=== PATIENT | male | born 1990 | race Caucasian/White ===

== ENCOUNTER 2019-04-11 22:02 | Emergency (ER) | payer SELFPAY ==
[~2019-04-11] VITALS: Ht 188 cm; Wt 53.0 kg
[2019-04-12 00:01] LABS: HEMATOCRIT 28.2 % (42.0-52.0); HEMOGLOBIN 9.7 g/dL (14.0-18.0); MEAN CORPUSCULAR HEMOGLOBIN 27.2 pg (28.0-32.0); MEAN CORPUSCULAR VOLUME 79.3 fL (80.0-94.0); PLATELET 384 x1000/uL (130-400); RED BLOOD CELL COUNT 3.55 mill/uL (4.7-6.1); RED CELL DISTRIBUTION WIDTH 15.5 % (11.6-14.6)
[2019-04-12 00:14] LABS: CHLORIDE 100 mEq/L (98-107)
[2019-04-12 00:21] LABS: BETA HYDROXYBUTYRATE 0.1 mMol/L (0.0-0.3)
[2019-04-12] MEDS ORDERED: POTASSIUM CHLORIDE 20MEQ TABLET SR PO NR (00:45)
[2019-04-12] MEDS ORDERED: SODIUM CHLORIDE 0.9% 1,000 ML IV NR (00:45)
[2019-04-12 02:27] VITALS: BP 109/67
== END 2019-04-12 02:39 | disposition home or self-care (01) ==
LOC: ER 22:02
DX: D64.9 Anemia, unspecified (principal); E11.649 Type 2 diabetes mellitus with hypoglycemia without coma; E87.6 Hypokalemia; N17.9 Acute kidney failure, unspecified; I95.9 Hypotension, unspecified
CPT/HCPCS: 36415; 82010; 82962; 85027; 96360; 99283

== ENCOUNTER 2019-12-07 11:58 | Inpatient (IN) | payer MEDICAID ==
[~2019-12-07] VITALS: Ht 188 cm; Wt 71.2 kg
[2019-12-07] MEDS ORDERED: SODIUM CHLORIDE 0.9% 1000ML BAG (SEPSIS BOLUS) IV ONE (12:15)
[2019-12-07] MEDS ORDERED: DEXT 5%/0.45% NACL KCL 20MEQ/L 1,000 ML IV ONE (12:31)
[2019-12-07 12:35] LABS: BG BASE EXCESS -12.2 mmol/L (-2.0-2.0); BG CARBOXYHEMOGLOBIN 0.3 % (0.5-1.5); BG DEOXYHEMOGLOBIN 2.4 % (0.0-5.0); BG FRACTION INSPIRED OXYGEN 21; BG HCO3 ACT 15.1 mmol/L (22.0-26.0); BG METHEMOGLOBIN 0.3 % (0.0-1.5); BG OXYGEN SATURATION 97.6 % (92.0-98.5); BG PCO2 40.3 mmHg (35.0-45.0); BG PH 7.191 (7.350-7.450); BG PO2 116.6 mmHg (75.0-100.0); BG SAMPLE SITE RIGHT RADIAL; BG TOTAL HEMOGLOBIN 8.9 g/dL (12.0-18.0); BG VENT MODE ROOM AIR
[2019-12-07] MEDS ORDERED: SODIUM BICARBONATE 8.4% 1 MEQ/ML 50ML SYR IV ONE (12:45)
[2019-12-07 13:01] LABS: EOSINOPHILS % 3.1 % (0.0-5.0); HEMATOCRIT. 24.3 % (42.0-52.0); LYMPHOCYTES % 19.1 % (20.0-50.0); MEAN CORPUSCULAR VOLUME 84.8 fL (80.0-94.0); MEAN PLATELET VOLUME 7.9 fl (7.4-10.4); MONOCYTES % 10.1 % (2.0-8.0); NEUTROPHILS % 66.7 % (40.0-76.0); PLATELET 191 x1000/uL (130-400); RED BLOOD CELL COUNT 2.87 mill/uL (4.7-6.1); RED CELL DISTRIBUTION WIDTH 16.7 % (11.6-14.6)
[2019-12-07 13:03] LABS: CHLORIDE 118 mEq/L (98-107)
[2019-12-07 13:07] LABS: PROTHROMBIN TIME 10.1 sec (9.6-11.0)
[2019-12-07 13:09] LABS: ETHANOL BLOOD < 10 mg/dL
[2019-12-07 13:12] LABS: CREATINE KINASE 51 IU/L (39-308)
[2019-12-07] MEDS ORDERED: CEFTRIAXONE 1 G PREMIX 50 ML IV ONE (13:15)
[2019-12-07] MEDS ORDERED: LEVOFLOXACIN 500MG PREMIX 100 ML IV ONE (13:15)
[2019-12-07] MEDS ORDERED: DEXT 5%/0.9% NACL 1,000 ML IV SCH (13:45)
[2019-12-07] MEDS ORDERED: CEFEPIME 500 MG in DEXTROSE 5% WATER 50 ML IV SCH (13:45)
[2019-12-07] MEDS ORDERED: SODIUM BICARBONATE 8.4% 1 MEQ/ML 50ML SYR IV SCH (14:00)
[2019-12-07] MEDS ORDERED: NOREPINEPHRINE 32 MG in DEXT 5% WATER 468 ML IV PRN ×2 (14:00→14:15)
[2019-12-07 14:28] LABS: CLARITY URINE TURBID (CLEAR); COLOR URINE YELLOW (YELLOW); KETONES URINE NEGATIVE (NEGATIVE); LEUKOCYTE ESTERASE URINE 3+ (NEGATIVE); NITRITE URINE NEGATIVE (NEGATIVE); OCCULT BLOOD URINE 2+ (NEGATIVE); PROTEIN URINE 2+ (NEGATIVE); SPECIFIC GRAVITY URINE 1.013 (1.005-1.030); UROBILINOGEN URINE 0.2 E.U./dL (0.2-1.0)
[2019-12-07] MEDS ORDERED: CEFEPIME 1,000 MG in DEXTROSE 5% WATER 50 ML IV SCH (16:00)
[2019-12-07 16:28] LABS: *BARBITURATES SCREEN URINE NEGATIVE (NEGATIVE); *BENZODIAZEPINES SCREEN URINE NEGATIVE (NEGATIVE); *COCAINE SCREEN URINE NEGATIVE (NEGATIVE)
[2019-12-07 16:29] LABS: *AMPHETAMINES SCREEN URINE NEGATIVE (NEGATIVE); CANNABINOID URINE SCREEN NEGATIVE (NEGATIVE); METHADONE URINE SCREEN NEGATIVE (NEGATIVE); OPIATES URINE SCREEN NEGATIVE (NEGATIVE); PHENCYCLIDINE URINE SCREEN NEGATIVE (NEGATIVE)
[2019-12-07] MEDS: FAMOTIDINE 20MG/2ML VIAL IV SCH (16:36)
[2019-12-07] MEDS: SODIUM BICARBONATE 150 MEQ in DEXTROSE 5% WATER 1,000 ML IV SCH (18:21)
[2019-12-07] MEDS ORDERED: FAMOTIDINE 20MG/2ML VIAL IV SCH (21:00)
[2019-12-08] VITALS: BP 112/77
[2019-12-08] MEDS ORDERED: DEXTROSE 50% WATER 50ML SYRINGE IV PRN
[2019-12-08] MEDS: SODIUM BICARBONATE 150 MEQ in DEXTROSE 5% WATER 1,000 ML IV SCH ×3 (02:46→17:10)
[2019-12-08] MEDS: BLOOD SUGAR DIAGNOSTIC STRIP TEST SCH ×4 (06:33→21:22)
[2019-12-08] MEDS: INSULIN LISPRO 100 UNITS/ML SUBCUT SCH ×4 (06:34→22:53)
[2019-12-08 08:00] VITALS: BP 98/64
[2019-12-08] MEDS: FAMOTIDINE 20MG/2ML VIAL IV SCH (08:52)
[2019-12-08 09:40] LABS: BG BASE EXCESS -9.1 mmol/L (-2.0-2.0); BG CARBOXYHEMOGLOBIN 0.3 % (0.5-1.5); BG DEOXYHEMOGLOBIN 2.5 % (0.0-5.0); BG FRACTION INSPIRED OXYGEN 21; BG METHEMOGLOBIN 1.5 % (0.0-1.5); BG OXYGEN SATURATION 97.5 % (92.0-98.5); BG OXYHEMOGLOBIN 95.7 % (94.0-97.0); BG PCO2 31.9 mmHg (35.0-45.0); BG PH 7.319 (7.350-7.450); BG PO2 120.8 mmHg (75.0-100.0); BG SAMPLE SITE RIGHT RADIAL; BG TOTAL HEMOGLOBIN 9.4 g/dL (12.0-18.0); BG VENT MODE ROOM AIR
[2019-12-08] MEDS: GABAPENTIN 300MG CAPSULE PO SCH ×2 (11:45→21:28)
[2019-12-08 12:00] VITALS: BP 102/58
[2019-12-08] MEDS ORDERED: GABAPENTIN 300MG CAPSULE PO SCH (14:00)
[2019-12-08] MEDS: INSULIN GLARGINE UD 100 UNITS/ML SYR SUBCUT SCH (17:18)
[2019-12-08] MEDS: ACETAMINOPHEN 325MG TABLET PO PRN ×2 (17:20→21:28)
[2019-12-08] MEDS: CEFEPIME 1,000 MG in DEXTROSE 5% WATER 50 ML IV SCH (17:43)
[2019-12-08 20:00] VITALS: BP 115/76
[2019-12-09 00:32] VITALS: BP 119/72
[2019-12-09] MEDS: SODIUM BICARBONATE 150 MEQ in DEXTROSE 5% WATER 1,000 ML IV SCH ×2 (03:14→14:00)
[2019-12-09 04:00] VITALS: BP 120/76
[2019-12-09] MEDS: BLOOD SUGAR DIAGNOSTIC STRIP TEST SCH ×2 (07:41→12:01)
[2019-12-09 08:00] VITALS: BP 119/77
[2019-12-09] MEDS: FAMOTIDINE 20MG/2ML VIAL IV SCH (08:08)
[2019-12-09] MEDS: GABAPENTIN 300MG CAPSULE PO SCH (08:08)
[2019-12-09] MEDS: INSULIN LISPRO 100 UNITS/ML SUBCUT SCH ×2 (08:09→12:01)
[2019-12-09] MEDS: INSULIN GLARGINE UD 100 UNITS/ML SYR SUBCUT SCH (10:04)
[2019-12-09 12:00] VITALS: BP 125/83
[2019-12-09 13:25] VITALS: BP 125/83
[2019-12-09 13:44] LABS: BASOPHILS % 0.8 % (0.0-2.0); EOSINOPHILS % 6.4 % (0.0-5.0); HEMATOCRIT. 26.3 % (42.0-52.0); HEMOGLOBIN. 8.9 g/dL (14.0-18.0); LYMPHOCYTES % 25.2 % (20.0-50.0); MEAN CORPUSCULAR HEMOGLOBIN 28.3 pg (28.0-32.0); MEAN CORPUSCULAR VOLUME 83.6 fL (80.0-94.0); MEAN PLATELET VOLUME 7.6 fl (7.4-10.4); MONOCYTES % 7.1 % (2.0-8.0); NEUTROPHILS % 60.5 % (40.0-76.0); PLATELET 214 x1000/uL (130-400); RED BLOOD CELL COUNT 3.15 mill/uL (4.7-6.1); RED CELL DISTRIBUTION WIDTH 16.7 % (11.6-14.6)
[2019-12-09 14:03] LABS: CHLORIDE 111 mEq/L (98-107)
[2019-12-09] MEDS: CEFEPIME 1,000 MG in DEXTROSE 5% WATER 50 ML IV SCH (15:30)
[2019-12-25] MEDS ORDERED: DEXT 5%/0.9% NACL 1,000 ML IV SCH (05:20)
== END 2019-12-09 16:15 | disposition home or self-care (01) | DRG 720 ==
LOC: ER 12:11 → 5WST 13:17 → EDBEDREQ 13:27 → EDBEDREQSVC 13:27 → ENRESERV 21:04 → 7WST 12-08 13:32
PROVIDERS: ADMIT Family Medicine; ATTEND Family Medicine
DX: A41.9 Sepsis, unspecified organism (principal); G93.41 Metabolic encephalopathy; R65.21 Severe sepsis with septic shock; E44.0 Moderate protein-calorie malnutrition; I12.9 Hypertensive chronic kidney disease with stage 1 through stage 4 chronic kidney disease, or unspecified chronic kidney disease; N18.9 Chronic kidney disease, unspecified; E11.40 Type 2 diabetes mellitus with diabetic neuropathy, unspecified; D63.1 Anemia in chronic kidney disease; E11.22 Type 2 diabetes mellitus with diabetic chronic kidney disease; E87.2 Acidosis; E86.0 Dehydration; E11.649 Type 2 diabetes mellitus with hypoglycemia without coma; Z03.818 Encounter for observation for suspected exposure to other biological agents ruled out; R74.0 Nonspecific elevation of levels of transaminase and lactic acid dehydrogenase [LDH]; N13.6 Pyonephrosis; Z79.4 Long term (current) use of insulin; N17.0 Acute kidney failure with tubular necrosis; Z91.19 Patient's noncompliance with other medical treatment and regimen
CPT/HCPCS: 36415; 36600; 71045; 76770; 80048; 80053; 80305; 80320; 81003; 82375; 82550; 82805; 82962; 83036; 83605; 83880; 84145; 84484; 85025; 87635; 93005; 96365; 99291; J0692; J0696; J1815; J1956; J3490; J7030; J7060; J7070; G0480

== ENCOUNTER 2019-12-24 15:27 | Inpatient (IN) | payer MEDICAID ==
[~2019-12-24] VITALS: Ht 188 cm; Wt 69.9 kg
[2019-12-24] MEDS ORDERED: SODIUM CHLORIDE 0.9% 1,000 ML IV ONE (16:23)
[2019-12-24] MEDS ORDERED: KETOROLAC 30MG/ML VIAL IV STA (16:23)
[2019-12-24] MEDS ORDERED: METOCLOPRAMIDE HCL 10MG/2ML VIAL IV ONE (16:30)
[2019-12-24 16:50] LABS: BASOPHILS % 0.9 % (0.0-2.0); EOSINOPHILS % 5.5 % (0.0-5.0); HEMATOCRIT. 33.6 % (42.0-52.0); LYMPHOCYTES % 24.6 % (20.0-50.0); MEAN CORPUSCULAR HEMOGLOBIN 27.1 pg (28.0-32.0); MEAN CORPUSCULAR VOLUME 82.7 fL (80.0-94.0); PLATELET 290 x1000/uL (130-400); RED BLOOD CELL COUNT 4.07 mill/uL (4.7-6.1); RED CELL DISTRIBUTION WIDTH 15.8 % (11.6-14.6)
[2019-12-24 16:53] LABS: PROTHROMBIN TIME 10.3 sec (9.6-11.0)
[2019-12-24] MEDS ORDERED: VANCOMYCIN 1 G PREMIX 200 ML IV ONE (17:00)
[2019-12-24] MEDS ORDERED: PIPERACILLIN/TAZ 3.375G PREMIX 50 ML IV ONE (17:00)
[2019-12-24] MEDS ORDERED: SODIUM CHLORIDE 0.9% 1000ML BAG (SEPSIS BOLUS) IV ONE (17:00)
[2019-12-24 17:02] LABS: CHLORIDE 103 mEq/L (98-107); CLARITY URINE TURBID (CLEAR); COLOR URINE YELLOW (YELLOW); KETONES URINE NEGATIVE (NEGATIVE); LEUKOCYTE ESTERASE URINE 3+ (NEGATIVE); NITRITE URINE POSITIVE (NEGATIVE); OCCULT BLOOD URINE 2+ (NEGATIVE); PROTEIN URINE 2+ (NEGATIVE); SPECIFIC GRAVITY URINE 1.013 (1.005-1.030); UROBILINOGEN URINE 0.2 E.U./dL (0.2-1.0)
[2019-12-24] MEDS ORDERED: INSULIN REGULAR (HUMULIN R) 300UNITS/3ML IV ONE (17:45)
[2019-12-24] MEDS ORDERED: DEXTROSE 50% WATER 50ML SYRINGE IV PRN (20:00)
[2019-12-24] MEDS ORDERED: MAGNESIUM/ALUMINUM HYDROXIDE/SIMETHICONE 30ML UDC PO PRN (20:00)
[2019-12-24] MEDS ORDERED: CLONIDINE 0.1MG TABLET PO PRN (20:00)
[2019-12-24] MEDS ORDERED: ONDANSETRON HCL 4MG/2ML INJ IV PRN (20:00)
[2019-12-24] MEDS ORDERED: DIPHENHYDRAMINE 50MG/ML VIAL IV PRN (20:00)
[2019-12-24] MEDS ORDERED: ACETAMINOPHEN 325MG TABLET PO PRN ×2 (20:00)
[2019-12-24] MEDS: INSULIN LISPRO 100 UNITS/ML SUBCUT SCH (20:25)
[2019-12-24] MEDS: BLOOD SUGAR DIAGNOSTIC STRIP TEST SCH (20:51)
[2019-12-24 21:00] VITALS: BP 100/68
[2019-12-24] MEDS: SODIUM CHLORIDE 0.9% 1,000 ML IV SCH (21:46)
[2019-12-24] MEDS: PIPERACILLIN/TAZOBACTAM 2.25 G in DEXTROSE 5% WATER 50 ML IV SCH (22:38)
[2019-12-24] MEDS ORDERED: PIPERACILLIN/TAZOBACTAM 2.25 G in DEXTROSE 5% WATER 50 ML IV SCH (23:00)
[2019-12-25] VITALS: BP 113/88
[2019-12-25] MEDS: INSULIN GLARGINE UD 100 UNITS/ML SYR SUBCUT SCH ×2 (00:03→23:20)
[2019-12-25] MEDS ORDERED: MORPHINE SULFATE 2 MG/ML CPJ (NOT FOR IM USE) IV NR (00:15)
[2019-12-25] MEDS ORDERED: INSHUMSS SUBCUT (02:30)
[2019-12-25] MEDS ORDERED: LANTUS SUBCUT (02:31)
[2019-12-25 04:00] VITALS: BP 107/71
[2019-12-25] MEDS: SODIUM CHLORIDE 0.9% 1,000 ML IV SCH ×2 (05:11→11:37)
[2019-12-25] MEDS: PIPERACILLIN/TAZOBACTAM 2.25 G in DEXTROSE 5% WATER 50 ML IV SCH ×2 (05:21→12:59)
[2019-12-25] MEDS: INSULIN LISPRO 100 UNITS/ML SUBCUT SCH ×4 (06:34→21:11)
[2019-12-25] MEDS: BLOOD SUGAR DIAGNOSTIC STRIP TEST SCH ×4 (06:34→21:11)
[2019-12-25 08:00] VITALS: BP 103/64
[2019-12-25 08:27] LABS: CHLORIDE 115 mEq/L (98-107)
[2019-12-25 08:35] LABS: BASOPHILS % 0.5 % (0.0-2.0); EOSINOPHILS % 6.9 % (0.0-5.0); HEMATOCRIT. 27.8 % (42.0-52.0); HEMOGLOBIN. 9.3 g/dL (14.0-18.0); LYMPHOCYTES % 20.5 % (20.0-50.0); MEAN CORPUSCULAR HEMOGLOBIN 27.3 pg (28.0-32.0); MEAN CORPUSCULAR VOLUME 81.4 fL (80.0-94.0); MEAN PLATELET VOLUME 7.7 fl (7.4-10.4); MONOCYTES % 8.1 % (2.0-8.0); PLATELET 257 x1000/uL (130-400); RED BLOOD CELL COUNT 3.42 mill/uL (4.7-6.1); RED CELL DISTRIBUTION WIDTH 15.4 % (11.6-14.6)
[2019-12-25 08:36] LABS: PHOSPHORUS 6.3 mg/dL (2.5-4.9)
[2019-12-25] MEDS: FAMOTIDINE 20MG TABLET PO SCH ×2 (09:25→09:29)
[2019-12-25 12:00] VITALS: BP 100/60
[2019-12-25] MEDS: SODIUM BICARBONATE 100 MEQ in SODIUM CHLORIDE 0.45% 1,000 ML IV SCH (15:02)
[2019-12-25 16:00] VITALS: BP 114/78
[2019-12-25 16:23] LABS: CREATINE KINASE 45 IU/L (39-308)
[2019-12-25] MEDS: MEROPENEM 1,000 MG in SODIUM CHLORIDE 0.9% 100 ML IV SCH (16:26)
[2019-12-25 20:00] VITALS: BP 121/76
[2019-12-26] VITALS: BP 111/68
[2019-12-26] MEDS: SODIUM BICARBONATE 100 MEQ in SODIUM CHLORIDE 0.45% 1,000 ML IV SCH ×3 (02:51→17:04)
[2019-12-26 04:00] VITALS: BP 96/63
[2019-12-26] MEDS: BLOOD SUGAR DIAGNOSTIC STRIP TEST SCH ×4 (07:23→21:51)
[2019-12-26] MEDS: INSULIN LISPRO 100 UNITS/ML SUBCUT SCH ×4 (07:23→21:58)
[2019-12-26 07:30] LABS: BASOPHILS % 0.6 % (0.0-2.0); EOSINOPHILS % 6.3 % (0.0-5.0); HEMATOCRIT. 25.3 % (42.0-52.0); HEMOGLOBIN. 8.6 g/dL (14.0-18.0); LYMPHOCYTES % 24.5 % (20.0-50.0); MEAN CORPUSCULAR HEMOGLOBIN 27.5 pg (28.0-32.0); MEAN CORPUSCULAR VOLUME 81.1 fL (80.0-94.0); MEAN PLATELET VOLUME 7.8 fl (7.4-10.4); MONOCYTES % 7.9 % (2.0-8.0); NEUTROPHILS % 60.7 % (40.0-76.0); PLATELET 253 x1000/uL (130-400); RED BLOOD CELL COUNT 3.12 mill/uL (4.7-6.1); RED CELL DISTRIBUTION WIDTH 15.7 % (11.6-14.6)
[2019-12-26 08:00] VITALS: BP 127/87
[2019-12-26] MEDS: MEROPENEM 1,000 MG in SODIUM CHLORIDE 0.9% 100 ML IV SCH (15:21)
[2019-12-26 16:00] VITALS: BP 126/78
[2019-12-26 20:00] VITALS: BP 137/71
[2019-12-27] VITALS: BP 132/86
[2019-12-27] MEDS: SODIUM BICARBONATE 100 MEQ in SODIUM CHLORIDE 0.45% 1,000 ML IV SCH ×3 (03:03→17:57)
[2019-12-27 04:00] VITALS: BP 111/80
[2019-12-27 05:59] LABS: BASOPHILS % 0.7 % (0.0-2.0); HEMATOCRIT. 25.6 % (42.0-52.0); HEMOGLOBIN. 8.5 g/dL (14.0-18.0); MEAN CORPUSCULAR HEMOGLOBIN 26.8 pg (28.0-32.0); MEAN PLATELET VOLUME 7.8 fl (7.4-10.4); MONOCYTES % 10.3 % (2.0-8.0); PLATELET 273 x1000/uL (130-400); RED BLOOD CELL COUNT 3.16 mill/uL (4.7-6.1); RED CELL DISTRIBUTION WIDTH 15.7 % (11.6-14.6)
[2019-12-27] MEDS: BLOOD SUGAR DIAGNOSTIC STRIP TEST SCH ×4 (06:25→21:20)
[2019-12-27] MEDS: INSULIN LISPRO 100 UNITS/ML SUBCUT SCH ×4 (06:58→21:18)
[2019-12-27] MEDS: FAMOTIDINE 20MG TABLET PO SCH (09:00)
[2019-12-27] MEDS ORDERED: POTASSIUM CHLORIDE 20MEQ TABLET SR PO NR (09:30)
[2019-12-27 11:23] VITALS: BP 128/92
[2019-12-27] MEDS: GABAPENTIN 300MG CAPSULE PO SCH ×2 (14:00→21:18)
[2019-12-27 15:08] LABS: ANTI-NUCLEAR ANTIBODIES DIRECT Negative (Negative)
[2019-12-27 20:00] VITALS: BP 150/102
[2019-12-27] MEDS: INSULIN GLARGINE UD 100 UNITS/ML SYR SUBCUT SCH ×2 (21:19)
[2019-12-28] VITALS: BP 96/69
[2019-12-28 04:00] VITALS: BP 119/86
[2019-12-28 05:54] LABS: CREATININE URINE (RAW) 44.5 mg/dl
[2019-12-28] MEDS: INSULIN LISPRO 100 UNITS/ML SUBCUT SCH ×3 (06:56→17:40)
[2019-12-28] MEDS: BLOOD SUGAR DIAGNOSTIC STRIP TEST SCH ×3 (06:56→17:10)
[2019-12-28] MEDS: GABAPENTIN 300MG CAPSULE PO SCH ×2 (06:58→14:11)
[2019-12-28 08:00] VITALS: BP 130/88
[2019-12-28 08:40] LABS: BASOPHILS % 0.6 % (0.0-2.0); EOSINOPHILS % 5.2 % (0.0-5.0); HEMATOCRIT. 26.4 % (42.0-52.0); HEMOGLOBIN. 8.9 g/dL (14.0-18.0); LYMPHOCYTES % 26.2 % (20.0-50.0); MEAN CORPUSCULAR HEMOGLOBIN 27.3 pg (28.0-32.0); MEAN CORPUSCULAR VOLUME 80.4 fL (80.0-94.0); MEAN PLATELET VOLUME 7.7 fl (7.4-10.4); MONOCYTES % 8.8 % (2.0-8.0); NEUTROPHILS % 59.2 % (40.0-76.0); PLATELET 260 x1000/uL (130-400); RED BLOOD CELL COUNT 3.28 mill/uL (4.7-6.1); RED CELL DISTRIBUTION WIDTH 15.7 % (11.6-14.6)
[2019-12-28] MEDS: CITRIC ACID/SODIUM CITRATE SOLN 30ML UDC PO SCH ×3 (08:45→17:00)
[2019-12-28] MEDS: FAMOTIDINE 20MG TABLET PO SCH (08:46)
[2019-12-28 09:51] LABS: PHOSPHORUS 4.5 mg/dL (2.5-4.9)
[2019-12-28 12:00] VITALS: BP 153/102
[2019-12-28 16:00] VITALS: BP 100/71
[2019-12-28 18:01] VITALS: BP 100/71
[2020-01-13] MEDS ORDERED: MIDO2.5T PO (14:10)
[2020-01-13] MEDS ORDERED: CITR30SO2 PO (14:16)
== END 2019-12-28 19:05 | disposition home or self-care (01) | DRG 720 ==
LOC: ER 15:27 → EDBEDREQTM 16:47 → EDBEDREQSVC 17:05 → EDBEDREQTM 17:05 → EDBEDREQ 17:47 → EDBEDREQTM 17:47 → 8WST 17:48 → EDBEDREQ 17:55 → EDBEDREQTM 17:55 → ENRESERV 19:25
PROVIDERS: ADMIT Internal Medicine; ATTEND Internal Medicine
DX: A41.9 Sepsis, unspecified organism (principal); N17.9 Acute kidney failure, unspecified; E87.1 Hypo-osmolality and hyponatremia; N18.9 Chronic kidney disease, unspecified; N31.9 Neuromuscular dysfunction of bladder, unspecified; R33.8 Other retention of urine; N39.0 Urinary tract infection, site not specified; G61.0 Guillain-Barre syndrome; D64.9 Anemia, unspecified; E10.9 Type 1 diabetes mellitus without complications; I12.9 Hypertensive chronic kidney disease with stage 1 through stage 4 chronic kidney disease, or unspecified chronic kidney disease; E10.22 Type 1 diabetes mellitus with diabetic chronic kidney disease; Z83.3 Family history of diabetes mellitus; Z79.4 Long term (current) use of insulin; Z91.19 Patient's noncompliance with other medical treatment and regimen
CPT/HCPCS: 36415; 71045; 76770; 80048; 80053; 81003; 82010; 82550; 82575; 82962; 83605; 83735; 84100; 84145; 84484; 85025; 86038; 86160; 93005; 96374; 99291; J1815; J1885; J2185; J2270; J2543; J2765; J3370; J3490; J7030; J7050; J7060

== ENCOUNTER 2020-01-09 20:36 | Inpatient (IN) | payer MEDICAID ==
[~2020-01-09] VITALS: Ht 188 cm; Wt 68.9 kg
[~2020-01-09 20:36] MED LIST: INSHUMSS SUBCUT; LANTUS SUBCUT
[2020-01-09] MEDS ORDERED: ACETAMINOPHEN WITH CODEINE 300/30MG TABLET PO STA (21:01)
[2020-01-09] MEDS ORDERED: SODIUM CHLORIDE 0.9% 1000ML BAG (SEPSIS BOLUS) IV ONE (21:15)
[2020-01-09 21:56] LABS: CHLORIDE 113 mEq/L (98-107)
[2020-01-09 22:04] LABS: BASOPHILS % 1.1 % (0.0-2.0); EOSINOPHILS % 3.5 % (0.0-5.0); HEMATOCRIT. 28.4 % (42.0-52.0); HEMOGLOBIN. 9.5 g/dL (14.0-18.0); LYMPHOCYTES % 19.7 % (20.0-50.0); MEAN CORPUSCULAR HEMOGLOBIN 27.3 pg (28.0-32.0); MEAN CORPUSCULAR VOLUME 81.7 fL (80.0-94.0); MEAN PLATELET VOLUME 7.7 fl (7.4-10.4); MONOCYTES % 9.4 % (2.0-8.0); NEUTROPHILS % 66.3 % (40.0-76.0); PLATELET 268 x1000/uL (130-400); RED BLOOD CELL COUNT 3.48 mill/uL (4.7-6.1); RED CELL DISTRIBUTION WIDTH 15.5 % (11.6-14.6)
[2020-01-09 22:49] LABS: CLARITY URINE TURBID (CLEAR); COLOR URINE YELLOW (YELLOW); KETONES URINE NEGATIVE (NEGATIVE); LEUKOCYTE ESTERASE URINE 3+ (NEGATIVE); NITRITE URINE NEGATIVE (NEGATIVE); OCCULT BLOOD URINE 3+ (NEGATIVE); PROTEIN URINE 2+ (NEGATIVE); SPECIFIC GRAVITY URINE 1.016 (1.005-1.030); UROBILINOGEN URINE 0.2 E.U./dL (0.2-1.0)
[2020-01-10] MEDS ORDERED: CEFTRIAXONE 1 G PREMIX 50 ML IV ONE
[2020-01-10 06:40] VITALS: BP 111/74
[2020-01-10] MEDS ORDERED: INSLIS SUBCUT (06:45)
[2020-01-10] MEDS ORDERED: GABA-531 PO (06:45)
[2020-01-10] MEDS ORDERED: LANTUSUD SUBCUT (06:45)
[2020-01-10] MEDS ORDERED: DEXTROSE 50% WATER 50ML SYRINGE IV PRN (07:45)
[2020-01-10 08:00] VITALS: BP 120/82
[2020-01-10] MEDS: HYDROCODONE/ACETAMINOPHEN 5/325MG TABLET PO PRN (10:04)
[2020-01-10] MEDS: INSULIN LISPRO 100 UNITS/ML SUBCUT SCH ×4 (10:05→21:32)
[2020-01-10 11:27] LABS: CHLORIDE 110 mEq/L (98-107)
[2020-01-10 11:36] LABS: LDL CHOLESTEROL 33 mg/dL (5-100)
[2020-01-10 11:38] LABS: HDL CHOLESTEROL 58 mg/dL (40-59); T4 FREE 0.91 ng/dL (0.76-1.46)
[2020-01-10 12:11] VITALS: BP 108/72
[2020-01-10 12:35] LABS: *AMPHETAMINES SCREEN URINE NEGATIVE (NEGATIVE); *BARBITURATES SCREEN URINE NEGATIVE (NEGATIVE); *BENZODIAZEPINES SCREEN URINE NEGATIVE (NEGATIVE); *COCAINE SCREEN URINE NEGATIVE (NEGATIVE)
[2020-01-10 12:37] LABS: CANNABINOID URINE SCREEN NEGATIVE (NEGATIVE); METHADONE URINE SCREEN NEGATIVE (NEGATIVE); OPIATES URINE SCREEN PRESUMTIVE POSITIVE (NEGATIVE); PHENCYCLIDINE URINE SCREEN NEGATIVE (NEGATIVE)
[2020-01-10] MEDS: BLOOD SUGAR DIAGNOSTIC STRIP TEST SCH ×3 (13:16→21:24)
[2020-01-10] MEDS: FLUCONAZOLE 100MG TABLET PO SCH (13:41)
[2020-01-10] MEDS: SODIUM CHLORIDE 0.9% 1,000 ML IV SCH (13:41)
[2020-01-10] MEDS: GABAPENTIN 300MG CAPSULE PO SCH ×2 (13:41→21:31)
[2020-01-10 15:55] LABS: BASOPHILS % 0.9 % (0.0-2.0); EOSINOPHILS % 6.3 % (0.0-5.0); HEMATOCRIT. 27.1 % (42.0-52.0); HEMOGLOBIN. 8.9 g/dL (14.0-18.0); LYMPHOCYTES % 27.8 % (20.0-50.0); MEAN CORPUSCULAR HEMOGLOBIN 27.3 pg (28.0-32.0); MEAN CORPUSCULAR VOLUME 83.2 fL (80.0-94.0); MEAN PLATELET VOLUME 8.2 fl (7.4-10.4); MONOCYTES % 8.1 % (2.0-8.0); NEUTROPHILS % 56.9 % (40.0-76.0); PLATELET 226 x1000/uL (130-400); RED BLOOD CELL COUNT 3.26 mill/uL (4.7-6.1); RED CELL DISTRIBUTION WIDTH 15.3 % (11.6-14.6)
[2020-01-10 16:13] LABS: CREATINE KINASE 77 IU/L (39-308)
[2020-01-10 16:16] LABS: CREATINE KINASE MB FRACTION 5.8 ng/mL (0.5-3.6)
[2020-01-10 17:42] VITALS: BP 103/63
[2020-01-10 20:00] VITALS: BP_SYST 104; BP_SYST 105; BP_SYST 90; BP_DIAS 47; BP_DIAS 68; BP_DIAS 69
[2020-01-10] MEDS: INSULIN GLARGINE UD 100 UNITS/ML SYR SUBCUT SCH (21:31)
[2020-01-11] VITALS: BP 101/66
[2020-01-11] MEDS: SODIUM CHLORIDE 0.9% 1,000 ML IV SCH ×2 (00:22→14:14)
[2020-01-11 01:01] LABS: CREATINE KINASE 69 IU/L (39-308)
[2020-01-11 01:02] LABS: CREATINE KINASE MB FRACTION 5.6 ng/mL (0.5-3.6)
[2020-01-11 04:00] VITALS: BP 117/81
[2020-01-11] MEDS: GABAPENTIN 300MG CAPSULE PO SCH ×3 (05:46→21:04)
[2020-01-11] MEDS: BLOOD SUGAR DIAGNOSTIC STRIP TEST SCH ×4 (06:34→20:30)
[2020-01-11 08:22] VITALS: BP 116/77
[2020-01-11] MEDS: FLUCONAZOLE 100MG TABLET PO SCH (08:33)
[2020-01-11] MEDS: INSULIN LISPRO 100 UNITS/ML SUBCUT SCH ×4 (08:35→20:30)
[2020-01-11 10:06] LABS: CREATINE KINASE MB FRACTION 5.1 ng/mL (0.5-3.6)
[2020-01-11 11:34] LABS: BASOPHILS % 0.7 % (0.0-2.0); CHLORIDE 116 mEq/L (98-107); EOSINOPHILS % 6.4 % (0.0-5.0); HEMATOCRIT. 27.1 % (42.0-52.0); HEMOGLOBIN. 8.8 g/dL (14.0-18.0); MEAN CORPUSCULAR HEMOGLOBIN 26.8 pg (28.0-32.0); MEAN CORPUSCULAR VOLUME 81.9 fL (80.0-94.0); MEAN PLATELET VOLUME 8.5 fl (7.4-10.4); MONOCYTES % 7.8 % (2.0-8.0); NEUTROPHILS % 63.1 % (40.0-76.0); PLATELET 216 x1000/uL (130-400); RED CELL DISTRIBUTION WIDTH 15.8 % (11.6-14.6)
[2020-01-11 12:02] VITALS: BP_SYST 108; BP_SYST 89; BP_SYST 95; BP_DIAS 55; BP_DIAS 77; BP_DIAS 89
[2020-01-11 15:51] VITALS: BP 118/81
[2020-01-11 16:33] LABS: PROTHROMBIN TIME 10.5 sec (9.6-11.0)
[2020-01-11 20:00] VITALS: BP 111/77
[2020-01-11] MEDS: INSULIN GLARGINE UD 100 UNITS/ML SYR SUBCUT SCH (21:05)
[2020-01-12] VITALS (8 sets, daily range): BP systolic 69–135; BP diastolic 34–85
[2020-01-12 00:25] LABS: *AMPHETAMINES SCREEN URINE NEGATIVE (NEGATIVE)
[2020-01-12 00:26] LABS: *BARBITURATES SCREEN URINE NEGATIVE (NEGATIVE); *BENZODIAZEPINES SCREEN URINE NEGATIVE (NEGATIVE); *COCAINE SCREEN URINE NEGATIVE (NEGATIVE); METHADONE URINE SCREEN NEGATIVE (NEGATIVE); OPIATES URINE SCREEN PRESUMTIVE POSITIVE (NEGATIVE)
[2020-01-12 00:28] LABS: CANNABINOID URINE SCREEN NEGATIVE (NEGATIVE); PHENCYCLIDINE URINE SCREEN NEGATIVE (NEGATIVE)
[2020-01-12] MEDS: SODIUM CHLORIDE 0.9% 1,000 ML IV SCH ×3 (03:06→22:12)
[2020-01-12] MEDS: GABAPENTIN 300MG CAPSULE PO SCH ×3 (05:39→21:16)
[2020-01-12 06:07] LABS: BASOPHILS % 0.7 % (0.0-2.0); EOSINOPHILS % 7.8 % (0.0-5.0); HEMOGLOBIN. 8.3 g/dL (14.0-18.0); LYMPHOCYTES % 29.1 % (20.0-50.0); MEAN CORPUSCULAR HEMOGLOBIN 27.2 pg (28.0-32.0); MEAN CORPUSCULAR VOLUME 82.3 fL (80.0-94.0); MEAN PLATELET VOLUME 8.1 fl (7.4-10.4); MONOCYTES % 10.9 % (2.0-8.0); NEUTROPHILS % 51.5 % (40.0-76.0); PLATELET 213 x1000/uL (130-400); RED BLOOD CELL COUNT 3.04 mill/uL (4.7-6.1); RED CELL DISTRIBUTION WIDTH 15.8 % (11.6-14.6)
[2020-01-12] MEDS: BLOOD SUGAR DIAGNOSTIC STRIP TEST SCH ×4 (06:19→21:16)
[2020-01-12] MEDS: INSULIN LISPRO 100 UNITS/ML SUBCUT SCH ×4 (06:44→21:17)
[2020-01-12 09:12] LABS: CHLORIDE 116 mEq/L (98-107)
[2020-01-12 09:24] LABS: PHOSPHORUS 5.1 mg/dL (2.5-4.9)
[2020-01-12] MEDS ORDERED: DEXTROSE 50% WATER 50ML SYRINGE IV PRN (10:15)
[2020-01-12] MEDS: FLUCONAZOLE 100MG TABLET PO SCH (10:27)
[2020-01-12] MEDS ORDERED: BLOOD SUGAR DIAGNOSTIC STRIP TEST SCH (12:20)
[2020-01-12] MEDS ORDERED: SODIUM POLYSTYRENE SULFONATE 15 G/60 ML BOT PO NR (13:00)
[2020-01-12] MEDS: INSULIN GLARGINE UD 100 UNITS/ML SYR SUBCUT SCH (21:18)
[2020-01-12] MEDS: HYDROCODONE/ACETAMINOPHEN 5/325MG TABLET PO PRN (22:38)
[2020-01-13] VITALS (7 sets, daily range): BP systolic 76–139; BP diastolic 43–94
[2020-01-13] MEDS: SODIUM CHLORIDE 0.9% 1,000 ML IV SCH ×2 (05:04→11:51)
[2020-01-13] MEDS: GABAPENTIN 300MG CAPSULE PO SCH ×3 (05:04→22:03)
[2020-01-13] MEDS: BLOOD SUGAR DIAGNOSTIC STRIP TEST SCH ×4 (07:20→21:00)
[2020-01-13 08:07] LABS: *CREATININE RANDOM URINE 23.5 mg/dL (Not Estab.)
[2020-01-13] MEDS: FLUCONAZOLE 100MG TABLET PO SCH (10:46)
[2020-01-13] MEDS: INSULIN LISPRO 100 UNITS/ML SUBCUT SCH ×4 (10:48→21:54)
[2020-01-13] MEDS ORDERED: MIDO2.5T PO (14:10)
[2020-01-13] MEDS ORDERED: CITR30SO2 PO (14:16)
[2020-01-13] MEDS: CITRIC ACID/SODIUM CITRATE SOLN 30ML UDC PO SCH ×2 (14:22→18:31)
[2020-01-13] MEDS: MIDODRINE HCL 2.5MG TABLET PO SCH ×2 (14:23→17:00)
[2020-01-13] MEDS: HYDROCODONE/ACETAMINOPHEN 5/325MG TABLET PO PRN (14:58)
[2020-01-13 15:32] LABS: BASOPHILS % 0.7 % (0.0-2.0); EOSINOPHILS % 7.1 % (0.0-5.0); HEMATOCRIT. 25.9 % (42.0-52.0); HEMOGLOBIN. 8.5 g/dL (14.0-18.0); LYMPHOCYTES % 27.1 % (20.0-50.0); MEAN CORPUSCULAR HEMOGLOBIN 27.2 pg (28.0-32.0); MEAN CORPUSCULAR VOLUME 82.4 fL (80.0-94.0); MEAN PLATELET VOLUME 7.9 fl (7.4-10.4); MONOCYTES % 8.7 % (2.0-8.0); NEUTROPHILS % 56.4 % (40.0-76.0); PLATELET 225 x1000/uL (130-400); RED BLOOD CELL COUNT 3.14 mill/uL (4.7-6.1); RED CELL DISTRIBUTION WIDTH 15.8 % (11.6-14.6)
[2020-01-13 15:56] LABS: CHLORIDE 116 mEq/L (98-107)
[2020-01-13] MEDS ORDERED: SODIUM POLYSTYRENE SULFONATE 15 G/60 ML BOT PO NR (18:30)
[2020-01-13] MEDS: INSULIN GLARGINE UD 100 UNITS/ML SYR SUBCUT SCH (21:55)
[2020-01-14] VITALS: BP 108/77
[2020-01-14 04:00] VITALS: BP 105/62
[2020-01-14] MEDS: GABAPENTIN 300MG CAPSULE PO SCH ×2 (05:51→13:27)
[2020-01-14] MEDS: HYDROCODONE/ACETAMINOPHEN 5/325MG TABLET PO PRN (06:00)
[2020-01-14] MEDS: BLOOD SUGAR DIAGNOSTIC STRIP TEST SCH ×2 (06:35→12:20)
[2020-01-14 07:31] LABS: BASOPHILS % 0.8 % (0.0-2.0); EOSINOPHILS % 7.6 % (0.0-5.0); HEMOGLOBIN. 8.3 g/dL (14.0-18.0); LYMPHOCYTES % 29.1 % (20.0-50.0); MEAN CORPUSCULAR HEMOGLOBIN 27.2 pg (28.0-32.0); MEAN CORPUSCULAR VOLUME 82.2 fL (80.0-94.0); MONOCYTES % 8.6 % (2.0-8.0); NEUTROPHILS % 53.9 % (40.0-76.0); PLATELET 216 x1000/uL (130-400); RED BLOOD CELL COUNT 3.04 mill/uL (4.7-6.1); RED CELL DISTRIBUTION WIDTH 15.9 % (11.6-14.6)
[2020-01-14 08:00] VITALS: BP 113/77
[2020-01-14] MEDS: MIDODRINE HCL 2.5MG TABLET PO SCH ×3 (08:34→13:00)
[2020-01-14] MEDS: FLUCONAZOLE 100MG TABLET PO SCH (08:34)
[2020-01-14] MEDS: INSULIN LISPRO 100 UNITS/ML SUBCUT SCH ×2 (08:36→13:27)
[2020-01-14] MEDS: CITRIC ACID/SODIUM CITRATE SOLN 30ML UDC PO SCH ×2 (08:45→13:27)
[2020-01-14 12:00] VITALS: BP 115/74
[2020-01-14] MEDS ORDERED: FLUCONAZOLE 150MG TABLET PO NR ×2 (13:15→14:00)
[2020-01-14 14:13] VITALS: BP 106/77
[2020-01-14] MEDS ORDERED: CEFTRIAXONE 1,000 MG in DEXTROSE 5% WATER 50 ML IV SCH (15:00)
[2020-01-14 16:00] VITALS: BP 100/70
== END 2020-01-14 17:06 | disposition home or self-care (01) | DRG 720 ==
LOC: ER 20:36 → 6WST 01-10 00:33 → ENRESERV 01-10 04:53
PROVIDERS: ADMIT Family Medicine; ATTEND Family Medicine
DX: A41.9 Sepsis, unspecified organism (principal); N13.6 Pyonephrosis; D63.8 Anemia in other chronic diseases classified elsewhere; E10.22 Type 1 diabetes mellitus with diabetic chronic kidney disease; E10.40 Type 1 diabetes mellitus with diabetic neuropathy, unspecified; E10.65 Type 1 diabetes mellitus with hyperglycemia; E78.5 Hyperlipidemia, unspecified; I12.9 Hypertensive chronic kidney disease with stage 1 through stage 4 chronic kidney disease, or unspecified chronic kidney disease; N18.9 Chronic kidney disease, unspecified; N17.9 Acute kidney failure, unspecified; E87.5 Hyperkalemia; I95.9 Hypotension, unspecified; N31.9 Neuromuscular dysfunction of bladder, unspecified; R33.8 Other retention of urine; R79.89 Other specified abnormal findings of blood chemistry; Z87.440 Personal history of urinary (tract) infections; Z79.4 Long term (current) use of insulin; G90.8 Other disorders of autonomic nervous system
CPT/HCPCS: 36415; 71045; 76770; 80048; 80053; 80061; 80305; 81003; 82043; 82550; 82553; 82570; 82962; 83036; 83605; 83735; 83935; 84100; 84156; 84300; 84439; 84443; 84484; 85025; 93005; 93306; 93970; 97116; 97162; 97166; 99291; J0696; J1815; J7030; J7060